=== PATIENT | female | born 1950 | race Caucasian/White ===

== ENCOUNTER → 2021-12-22 | Day surgery (SDC) | payer MEDICARE, OTHER ==
[~2021-12-22] VITALS: Ht 165.1 cm; Wt 67.6 kg
[~2021-12-22] MED LIST: BYSTOLIC10 M1 PO; BYSTOLIC5 MG PO; CYANOCOBAL1000 MCG/1 SC; DESVENLAFAXINE50 M3 PO; ESCITALOPRAM OX10 MG PO; LASIX20 MG PO; PROAIR HFA8.5 GM INH; TRELEGY ELLIPT1 EACH INH; VITAMIN D3 COM1 EACH PO; ZYRTEC10 M3 PO
== END | disposition home or self-care (01) ==
LOC: FAS 09:48
DX: K31.4 Gastric diverticulum (principal); K22.2 Esophageal obstruction; K44.9 Diaphragmatic hernia without obstruction or gangrene; K29.50 Unspecified chronic gastritis without bleeding; K21.00 Gastro-esophageal reflux disease with esophagitis, without bleeding; I10 Essential (primary) hypertension; J44.9 Chronic obstructive pulmonary disease, unspecified; G47.30 Sleep apnea, unspecified; F41.9 Anxiety disorder, unspecified; M19.90 Unspecified osteoarthritis, unspecified site; Z88.5 Allergy status to narcotic agent; Z79.899 Other long term (current) drug therapy; Z87.891 Personal history of nicotine dependence; Z72.89 Other problems related to lifestyle; Z90.49 Acquired absence of other specified parts of digestive tract; Z80.0 Family history of malignant neoplasm of digestive organs
CPT/HCPCS: C1726; J2704; J7120